=== PATIENT | female | born 1995 ===

== ENCOUNTER 2018-09-02 23:13 | Observation (INO) | payer MEDICAID ==
[2018-09-02] MEDS ORDERED: SODIUM CHLORIDE 0.9% 500 ML IV ONE (23:29)
[2018-09-02] MEDS ORDERED: ONDANSETRON HCL IV 4 MG/2 ML VIAL IV ONE (23:29)
--- NOTE | 2018-09-02 23:36 | Emergency Department Record ---
History of Present Illness - General Chief Complaint: Fever Stated Complaint: FEVER Time Seen by Provider: 09/02/18 23:20 Source: Communications Engineer Mode of Arrival: Ambulatory Limitations: No limitations - History of Present Illness Initial Comments: The patient is here with a caregiver from her foster usp due to a 2 day hx of nausea, vomiting, and loose stools. 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 She normally lives in [place] and has been a resident of a foster usp in [place] for about 2 months. The caregiver is not able to provide any other history and is not familiar with the patient. She appears to have a history of seizures per her home medicines. The patient also is in a diaper and is not continent per the caregiver. No other hx is provided. MD Complaint: Malaise Onset/Timin -: Days(s) Context: Other Associated Symptoms: Vomiting, Diarrhea Treatments Prior to Arrival: Ibuprofen - Related Data Home Medications Medication Instructions Recorded Confirmed Last Taken Cholecalciferol (Vitamin D3) 1,000 unit PO DAILY 09/02/18 09/03/18 Unknown [Vitamin D3] Clonidine HCl 0.1 mg PO QAM 09/02/18 09/03/18 Unknown Clonidine HCl 0.2 mg PO QPM 09/02/18 09/03/18 Unknown Divalproex Sodium [Depakote] 250 mg PO TID 09/02/18 09/03/18 Unknown Lactulose 10 gm PO DAILY 09/02/18 09/03/18 Unknown Levetiracetam [Keppra] 500 mg PO BID 09/02/18 09/03/18 Unknown Polyethylene Glycol 3350 238Gm 17 gm PO DAILY 09/02/18 09/02/18 Unknown [Polyethylene Glycol 3350] Pyridoxine HCl [Vitamin B-6] 100 mg PO DAILY 09/02/18 09/03/18 Unknown Risperidone [Risperadol] 1 mg PO BID PRN 09/02/18 09/03/18 Unknown Risperidone [Risperdal] 0.25 mg PO BID 09/02/18 09/03/18 Unknown Risperidone [Risperdal] 1 mg PO QAM 09/02/18 09/03/18 Unknown Allergies Allergy/AdvReac Type Severity Reaction Status Date / Time No Known Drug Allergies Allergy Verified 09/02/18 23:29 Travel Screening - Travel/Exposure Within Last 30 Days Have you traveled within the last 30 days?: No - Travel Symptoms Symptom Screening: Fever (Subjective) Review of Systems ROS unobtainable: Due to mental status Past Medical History - SOCIAL HISTORY Smoking Status: Never smoker Alcohol Use: None Drug Use: None - RESPIRATORY Hx Respiratory Disorders: No - CARDIOVASCULAR Hx Cardio Disorders: No - NEURO Hx Neuro Disorders: Yes Comment:: blind and deaf - GI Hx GI Disorders: No - Hx Genitourinary Disorders: No - ENDOCRINE Hx Endocrine Disorders: No - MUSCULOSKELETAL Hx Musculoskeletal Disorders: No - PSYCH Hx Psych Problems: No - HEMATOLOGY/ONCOLOGY Hx Hematology/Oncology Disorders: No Family Medical History Any Significant Family History?: No Family Hx Comment (NOT TO BE USED IN PLACE OF ITEMS BELOW): unknown Physical Exam - General General Appearance: Alert, No acute distress - Head Head exam: Atraumatic, Normocephalic - Neck Neck exam: Normal inspection, Full ROM. negative: Tenderness - Respiratory Respiratory exam: Normal lung sounds bilaterally. negative: Respiratory distress - Cardiovascular Cardiovascular Exam: Regular rate, Normal rhythm, Normal heart sounds - GI/Abdominal GI/Abdominal exam: Soft, Normal bowel sounds. negative: Tenderness - Extremities Extremities exam: Normal inspection, Full ROM, Normal capillary refill. negative: Tenderness - Neurological Neurological exam: Abnormal gait (chronic. The patient has a shuffling gait which is normal for her per foster usp caregiver.). negative: Alert (The patient is presently sleeping but did walk into the ER with the caregiver.), Motor sensory deficit (She is moving her arms and legs spontaneously and did walk into the ER.), Normal gait, Oriented X3 Course Vital Signs 09/02/18 23:26 Temperature 98.7 F Pulse Rate [ 70 Pulse Ox Probe] Respiratory 20 Rate Blood Pressure 87/61 [Left Arm] Pulse Ox 96 - Reevaluation(s) Reevaluation #1: The patient is doing better at this time and is resting comfortably and is sleeping normally per the caregiver. On exam her abdomen is soft and nontender and there is no fever presently on a rectal temp. I did explain to the caregiver that the evaluation so far is basically WNL's but that she does have a mild bandemia on her WBC differential. Due to the difficulty with her examination and the fact that her blood pressure is running low (although she did get Clonidine just prior to presenting to the ER) we will admit the patient for a short stay admission. 09/03/18 01:24 Medical Decision Making - Data Complexity MDM Data: Labs Ordered and/or Reviewed, X-Ray Ordered and/or Reviewed - Lab Data Result diagrams: 09/02/18 23:55 09/02/18 23:55 - Radiology Data Radiology results: Report reviewed (Abd CT: Chronic constipation. ) Disposition Disposition: Admit Clinical Impression: Vomiting and diarrhea Disposition: Still a Patient at [facility] Decision to Admit: Admit from ER Decision to Admit Date: 09/03/18 Decision to Admit Time: : Accepting Physician: Jordan Time Discussed w/Accepting Physician: : Condition: (2) Stable Forms: Patient Portal Access Time of Disposition: Quality - Quality Measures Quality Measures: N/A - Blood Pressure Screening View Details: Yes Does Patient Have Any of the Following: No Blood Pressure Classification: Normal BP Reading Systolic Measurement: 79 Diastolic Measurement: 51 Screening for High Blood Pressure: < Normal BP, F/U Not Required > [G8783]
[2018-09-03 00:07] LABS: HEMOGLOBIN 12.8 gm/dl (11.6-16.0); MEAN CELL VOLUME 88.4 fl (81-97); MEAN CORPUSCULAR HEMOGLOBIN 29.8 pg (27-33); MEAN CORPUSCULAR HGB CONC 33.7 g/dl (32-36); MEAN PLATELET VOLUME 12.3 fl (7.4-10.4); PLATELET COUNT 122 K/uL (130-400); RED CELL DISTRIBUTION WIDTH 13.4 % (11.5-14.5); WHITE BLOOD COUNT W/O DIFF 7.5 K/uL (4.2-12.2)
[2018-09-03 00:10] LABS: URINE APPEARANCE CLEAR; URINE BILIRUBIN NEGATIVE (NEGATIVE); URINE BLOOD NEGATIVE (NEGATIVE); URINE COLOR YELLOW; URINE GLUCOSE (UA) NEGATIVE (NEGATIVE); URINE KETONE NEGATIVE (NEGATIVE); URINE LEUKOCYTE ESTERASE NEGATIVE (NEGATIVE); URINE NITRITE NEGATIVE (NEGATIVE); URINE PROTEIN NEGATIVE (NEGATIVE); URINE UROBILINOGEN 0.2 E.U./dL (0.20 - 1.00)
[2018-09-03 00:17] LABS: BLOOD UREA NITROGEN 13 mg/dL (6-20); CREATININE 0.7 mg/dL (0.5-0.9); EST GLOMERULAR FILTRATION RATE > 60 mL/min
[2018-09-03 00:18] LABS: TOTAL PROTEIN 6.9 g/dL (6.6-8.7)
[2018-09-03 00:20] LABS: GLUCOSE,RANDOM 101 mg/dL (74-109)
[2018-09-03 00:22] LABS: ALBUMIN 3.6 g/dL (4.0-5.0); ALT/SGPT 18 U/L (<33); AST/SGOT 38 U/L (10.0-35.0)
[2018-09-03 00:23] LABS: ALKALINE PHOSPHATASE 49 U/L (35-104); LIPASE 48 U/L (13-60)
[2018-09-03 00:25] LABS: BILIRUBIN,DIRECT < 0.2 mg/dL (0-0.3)
[2018-09-03 00:36] LABS: PLATELET ESTIMATE NORMAL (NORMAL)
[2018-09-03] MEDS ORDERED: 0.9 % SODIUM CHLORIDE 1000ML 1,000 ML IV PRN (02:23)
[2018-09-03] MEDS ORDERED: RISPERIDONE 1 MG TABLET PO PRN (02:23)
[2018-09-03 06:59] LABS: HEMOGLOBIN 13.6 gm/dl (11.6-16.0); MEAN CELL VOLUME 88.7 fl (81-97); MEAN CORPUSCULAR HEMOGLOBIN 29.4 pg (27-33); MEAN CORPUSCULAR HGB CONC 33.2 g/dl (32-36); MEAN PLATELET VOLUME 11.7 fl (7.4-10.4); PLATELET COUNT 122 K/uL (130-400); RED BLOOD COUNT 4.62 M/uL (3.80-5.40); RED CELL DISTRIBUTION WIDTH 13.6 % (11.5-14.5); WHITE BLOOD COUNT W/O DIFF 6.2 K/uL (4.2-12.2)
[2018-09-03] MEDS ORDERED: PANTOPRAZOLE SODIUM IV 40 MG VIAL IV SCH (07:00)
[2018-09-03 07:20] LABS: ALB/GLOB RATIO 1.1 (1.1-1.8); ALBUMIN 3.5 g/dL (4.0-5.0); ALKALINE PHOSPHATASE 48 U/L (35-104); ALT/SGPT 16 U/L (<33); AST/SGOT 26 U/L (10.0-35.0); BLOOD UREA NITROGEN 14 mg/dL (6-20); CREATININE 0.6 mg/dL (0.5-0.9); EST GLOMERULAR FILTRATION RATE > 60 mL/min; GLUCOSE,RANDOM 78 mg/dL (74-109); TOTAL PROTEIN 6.6 g/dL (6.6-8.7)
[2018-09-03 07:40] LABS: PLATELET ESTIMATE NORMAL (NORMAL)
[2018-09-03] MEDS ORDERED: LACTULOSE 20 GM/30 ML UDC PO SCH (10:00)
[2018-09-03] MEDS ORDERED: LEVETIRACETAM 500 MG TABLET PO SCH (10:00)
[2018-09-03] MEDS ORDERED: POLYETHYLENE GLYCOL 3350 238GM BOTTLE PO SCH (10:00)
--- NOTE | 2018-09-03 10:12 | History & Physical ---
History of Present Illness - Date of Service Date of Service for History & Physical: 09/03/18 - History of Present Illness Admitting Diagnosis: 1. Vomiting and Diarrhea History of Present Illness: Ms. Pinzon is a 23 year-old female who presented to the ED with her caregiver from an [facility] home with concern of 2 days hx of nausea, vomiting, and loose stools. 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 She normally lives in [place] and has been a resident of a foster snf in [place] for about 2 months. The caregiver is not able to provide any other history and is not familiar with the patient. The patient also is in a diaper and is not continent per the caregiver. Her history includes: deaf, blind, and epilepsy. She does follow neurology for epilepsy. In the ED, her vitals were BP 87/61, HR 70, T 98.7F, and 96% on room air. She did receive clonidine just prior to presenting to the ED. CBC and CMP were fairly normal, slight bandemia, UA was negative. CXR normal, abdominal CT demonstrated chronic constipation. She was admitted for observation for hypotension. 09/03/18 0930: Pt. is resting in bed, she is responsive to touch and appears to behave at her baseline. She has not vomited or had diarrhea since admission. Her vitals have remained at her baseline and her am labs were unremarkable. Her clonidine has been held due to her low BP. I called her caregiver and discussed pt's status, will plan to discharge back to [facility] early afternoon today. Pt. is to f/u with neurology regarding clonidine usage. Travel Screening - Travel/Exposure Within Last 30 Days Have you traveled within the last 30 days?: No Location Detail:: unable to answer - Travel/Exposure Within Last Year Have you traveled outside the [place] in the last year?: No Location Detail:: unable to answer - Additonal Travel Details Have you been exposed to anyone with a communicable illness?: No Exposure Details:: unable to answer - Travel Symptoms Symptom Screening: Diarrhea, Vomiting Past Medical History - SOCIAL HISTORY Smoking Status: Never smoker - RESPIRATORY Hx Respiratory Disorders: No - CARDIOVASCULAR Hx Cardio Disorders: No - NEURO Hx Neuro Disorders: Yes Comment:: blind and deaf - GI Hx GI Disorders: No - Hx Genitourinary Disorders: No - ENDOCRINE Hx Endocrine Disorders: No - MUSCULOSKELETAL Hx Musculoskeletal Disorders: No - PSYCH Hx Psych Problems: No - HEMATOLOGY/ONCOLOGY Hx Hematology/Oncology Disorders: No Family Medical History Any Significant Family History?: No Family Hx Comment (NOT TO BE USED IN PLACE OF ITEMS BELOW): unknown H&P Meds/Allergies - Allergies Allergies: Allergies Allergy/AdvReac Type Severity Reaction Status Date / Time No Known Drug Allergies Allergy Verified 09/02/18 23:29 - Home Medications Home Medications Medication Instructions Recorded Confirmed Last Taken Cholecalciferol (Vitamin D3) 1,000 unit PO DAILY 09/02/18 09/03/18 Unknown [Vitamin D3] Clonidine HCl 0.1 mg PO QAM 09/02/18 09/03/18 Unknown Clonidine HCl 0.2 mg PO QPM 09/02/18 09/03/18 Unknown Divalproex Sodium [Depakote] 250 mg PO TID 09/02/18 09/03/18 Unknown Lactulose 10 gm PO DAILY 09/02/18 09/03/18 Unknown Levetiracetam [Keppra] 500 mg PO BID 09/02/18 09/03/18 Unknown Polyethylene Glycol 3350 238Gm 17 gm PO DAILY 09/02/18 09/02/18 Unknown [Polyethylene Glycol 3350] Pyridoxine HCl [Vitamin B-6] 100 mg PO DAILY 09/02/18 09/03/18 Unknown Risperidone [Risperadol] 1 mg PO BID PRN 09/02/18 09/03/18 Unknown Risperidone [Risperdal] 0.25 mg PO BID 09/02/18 09/03/18 Unknown Risperidone [Risperdal] 1 mg PO QAM 09/02/18 09/03/18 Unknown - Active Medications Active Medications: Current Medications Sodium Chloride () 1,000 mls @ 80 mls/hr IV .[id number] PRN PRN Reason: LARGE VOLUME IV Last Admin: 09/03/18 02:32 Dose: 80 mls/hr Lactulose (Lactulose) 10 gm PO DAILY ELVIS Levetiracetam (Keppra) 500 mg PO BID ELVIS Pantoprazole Sodium (Protonix Iv) 40 mg IV DAILYAC ELVIS Last Admin: 09/03/18 06:22 Dose: 40 mg Polyethylene Glycol (Polyethylene Glycol 3350) 17 gm PO DAILY ELVIS Risperidone (Risperadol) 1 mg PO BID PRN PRN Reason: AGITATION Physical Exam - Vital Signs Vital Signs: Vital Signs - Last 24 Hrs Temp Pulse Resp BP Pulse Ox 09/03/18 09:00 97.1 F L 84 18 78/53 96 09/03/18 05:14 64 16 09/03/18 05:00 98.1 F 74 16 140/44 96 09/03/18 01:58 97.7 F 64 16 86/49 96 09/03/18 01:22 97.5 F L 09/03/18 01:12 57 L 20 79/51 100 09/02/18 23:26 98.7 F 70 20 87/61 96 - General General Appearance: Alert, No acute distress Limitations: No limitations - Head Head exam: Atraumatic, Normocephalic - Neck Neck exam: Normal inspection, Full ROM. negative: Tenderness - Respiratory Respiratory exam: Normal lung sounds bilaterally. negative: Respiratory distress - Cardiovascular Cardiovascular Exam: Regular rate, Normal rhythm, Normal heart sounds - GI/Abdominal GI/Abdominal exam: Soft, Normal bowel sounds. negative: Tenderness - Extremities Extremities exam: Normal inspection, Full ROM, Normal capillary refill. negative: Tenderness - Neurological Neurological exam: Abnormal gait (chronic. The patient has a shuffling gait which is normal for her per foster snf caregiver.). negative: Alert (The patient is presently sleeping but did walk into the ER with the caregiver.), Motor sensory deficit (She is moving her arms and legs spontaneously and did walk into the ER.), Normal gait, Oriented X3 Results - Labs Result Diagrams: 09/03/18 06:17 09/03/18 06:17 Labs Last 24 Hours: Laboratory Results - last 24 hr 09/02/18 09/02/18 09/02/18 23:55 23:55 23:55 WBC 7.5 RBC 4.30 Hgb 12.8 Hct 38.0 MCV 88.4 MCH 29.8 MCHC 33.7 RDW 13.4 Plt Count 122 L MPV 12.3 H Neutrophils % 37.0 L Band Neutrophils % 10.0 H Eosinophils % Not Reportable Basophils % Not Reportable Lymphocytes 29.0 Monocytes 23.0 H Platelet Estimate Normal RBC Morphology Normal Eosinophil Count 1.0 Sodium 138 Potassium 4.3 Chloride 100 Carbon Dioxide 25.0 Anion Gap 13.0 BUN 13 Creatinine 0.7 Estimated GFR > 60 Random Glucose 101 Calcium 8.9 Total Bilirubin 0.20 Direct Bilirubin < 0.2 AST 38 H ALT 18 Alkaline Phosphatase 49 C-Reactive Protein Total Protein 6.9 Albumin 3.6 L Globulin Albumin/Globulin Ratio Lipase 48 Serum HCG, Qual Urine Color Yellow Urine Appearance Clear Urine pH 6.0 Ur Specific [place] 1.015 Urine Protein Negative Urine Glucose (UA) Negative Urine Ketones Negative Urine Blood Negative Urine Nitrite Negative Urine Bilirubin Negative Urine Urobilinogen 0.2 Ur Leukocyte Esterase Negative Urine HCG, Qual Valproic Acid 09/02/18 09/02/18 09/03/18 23:55 23:55 06:17 WBC 6.2 RBC 4.62 Hgb 13.6 Hct 41.0 MCV 88.7 MCH 29.4 MCHC 33.2 RDW 13.6 Plt Count 122 L MPV 11.7 H Neutrophils % 26.0 L Band Neutrophils % 3.0 Eosinophils % Not Reportable Basophils % Not Reportable Lymphocytes 55.0 H Monocytes 16.0 H Platelet Estimate Normal RBC Morphology Normal Eosinophil Count Sodium Potassium Chloride Carbon Dioxide Anion Gap BUN Creatinine Estimated GFR Random Glucose Calcium Total Bilirubin Direct Bilirubin AST ALT Alkaline Phosphatase C-Reactive Protein 1.06 H Total Protein Albumin Globulin Albumin/Globulin Ratio Lipase Serum HCG, Qual Cancelled Urine Color Urine Appearance Urine pH Ur Specific [place] Urine Protein Urine Glucose (UA) Urine Ketones Urine Blood Urine Nitrite Urine Bilirubin Urine Urobilinogen Ur Leukocyte Esterase Urine HCG, Qual Valproic Acid 09/03/18 09/03/18 09/03/18 06:17 Unknown Unknown WBC RBC Hgb Hct MCV MCH MCHC RDW Plt Count MPV Neutrophils % Band Neutrophils % Eosinophils % Basophils % Lymphocytes Monocytes Platelet Estimate RBC Morphology Eosinophil Count Sodium 142 Potassium 4.4 Chloride 104 Carbon Dioxide 28.0 Anion Gap 10.0 BUN 14 Creatinine 0.6 Estimated GFR > 60 Random Glucose 78 Calcium 9.0 Total Bilirubin 0.20 Direct Bilirubin AST 26 ALT 16 Alkaline Phosphatase 48 C-Reactive Protein Total Protein 6.6 Albumin 3.5 L Globulin 3.1 Albumin/Globulin Ratio 1.1 Lipase Serum HCG, Qual Urine Color Urine Appearance Urine pH Ur Specific [place] Urine Protein Urine Glucose (UA) Urine Ketones Urine Blood Urine Nitrite Urine Bilirubin Urine Urobilinogen Ur Leukocyte Esterase Urine HCG, Qual Negative Valproic Acid 103.0 H - Imaging and Cardiology Chest x-ray Status: Image reviewed (No acute process) CT scan - abdomen Status: Pending (Chronic constipation) VTE H&P Assessment - Risk for VTE Risk for VTE: No Risk Level: Very Low Risk Assessment Date: 09/03/18 Risk Assessment Time: 10:25 VTE Orders Placed or Will Be Placed: No VTE Reason for No Prophylaxis: Not Indicated (mobility not impaired) Plan - Detailed Diagnosis and Plan (1) Vomiting and diarrhea Current Visit: Yes Status: Acute Base Code: R11.10 - VOMITING, UNSPECIFIED; R19.7 - DIARRHEA, UNSPECIFIED Comment: 09/03/18: -Symptoms have resolved since presenting to ED -Pt. is tolerating soft diet -she has 2 semi-formed stools this morning (2) Hypotension Current Visit: Yes Status: Acute Base Code: I95.9 - HYPOTENSION, UNSPECIFIED Comment: 09/03/18: -BP 87/61 in ED (pt had her clonidine prior to presenting to ED) -Holding clonidine and BP has remained upper 80s/50s -BP likely at baseline (similar to BP during recent [facility] visit) -Will plan to d/c back to [facility] and pt to f/u with neurology regarding continuation of clonidine (3) Epilepsy Current Visit: Yes Status: Acute Base Code: G40.909 - EPILEPSY, UNSP, NOT INTRACTABLE, WITHOUT STATUS EPILEPTICUS Comment: 09/03/18: -Epilepsy managed by neurology per pt's caregiver -Continue keppra 500mg bid -Holding clonidine due to hypotension (4) Blindness with deafness Current Visit: Yes Status: Acute Base Code: H54.7 - UNSPECIFIED VISUAL LOSS ; H91.90 - UNSPECIFIED HEARING LOSS, UNSPECIFIED EAR Comment: 09/03/18: -Up with assist x1 -Bed alarm on (5) Constipation Current Visit: Yes Status: Acute Base Code: K59.00 - CONSTIPATION, UNSPECIFIED Comment: 09/03/18: -Chronic constipation demonstrated on abdominal CT in ED (09/02) -Restarting lactulose and miralax (home meds had been held due to concern of diarrhea and pt incontinent of bowel and bladder) -Pt. had 2 semi-formed stools this morning (6) Full code status Current Visit: Yes Status: Acute Base Code: Z78.9 - OTHER SPECIFIED HEALTH STATUS Comment: 09/03/18: -Pt. is a full code
--- NOTE | 2018-09-03 11:20 | Discharge Summary ---
Providers Discharge Summary Date: 09/03/18 Date of admission: 09/03/18 01:52 Expected Date of Discharge: 09/03/18 Attending physician: STEPHANIE WATTERS Physical Exam - Vital Signs Vital Signs: Vital Signs - Last 24 Hrs Temp Pulse Resp BP Pulse Ox 09/03/18 09:00 97.1 F L 84 18 78/53 96 09/03/18 05:14 64 16 09/03/18 05:00 98.1 F 74 16 140/44 96 09/03/18 01:58 97.7 F 64 16 86/49 96 09/03/18 01:22 97.5 F L 09/03/18 01:12 57 L 20 79/51 100 09/02/18 23:26 98.7 F 70 20 87/61 96 - General General Appearance: Alert, No acute distress Limitations: Other (deaf and blind) - Head Head exam: Atraumatic, Normocephalic - Neck Neck exam: Normal inspection, Full ROM. negative: Tenderness - Respiratory Respiratory exam: Normal lung sounds bilaterally. negative: Respiratory distress - Cardiovascular Cardiovascular Exam: Regular rate, Normal rhythm, Normal heart sounds - GI/Abdominal GI/Abdominal exam: Soft, Normal bowel sounds. negative: Tenderness - Extremities Extremities exam: Normal inspection, Full ROM, Normal capillary refill. negative: Tenderness - Neurological Neurological exam: Abnormal gait (chronic. The patient has a shuffling gait which is normal for her per foster senior care caregiver.). negative: Alert (The patient is presently sleeping but did walk into the ER with the caregiver.), Motor sensory deficit (She is moving her arms and legs spontaneously and did walk into the ER.), Normal gait, Oriented X3 Hospitalization - Hospitalization Admission Diagnosis: 1. Vomiting and Diarrhea - Problem List/Discharge Diagnosis (1) Vomiting and diarrhea Current Visit: Yes Status: Acute Base Code: R11.10 - VOMITING, UNSPECIFIED; R19.7 - DIARRHEA, UNSPECIFIED Comment: 09/03/18: -Symptoms have resolved since presenting to ED -Pt. is tolerating soft diet -she has 2 semi-formed stools this morning (2) Hypotension Current Visit: Yes Status: Acute Base Code: I95.9 - HYPOTENSION, UNSPECIFIED Comment: 09/03/18: -BP 87/61 in ED (pt had her clonidine prior to presenting to ED) -Holding clonidine and BP has remained upper 80s/50s -BP likely at baseline (similar to BP during recent [facility] visit) -Will plan to d/c back to [facility] and pt to f/u with neurology regarding continuation of clonidine (3) Epilepsy Current Visit: Yes Status: Acute Base Code: G40.909 - EPILEPSY, UNSP, NOT INTRACTABLE, WITHOUT STATUS EPILEPTICUS Comment: 09/03/18: -Epilepsy managed by neurology per pt's caregiver -Continue keppra 500mg bid -Holding clonidine due to hypotension (4) Blindness with deafness Current Visit: Yes Status: Acute Base Code: H54.7 - UNSPECIFIED VISUAL LOSS ; H91.90 - UNSPECIFIED HEARING LOSS, UNSPECIFIED EAR Comment: 09/03/18: -Up with assist x1 -Bed alarm on (5) Constipation Current Visit: Yes Status: Acute Base Code: K59.00 - CONSTIPATION, UNSPECIFIED Comment: 09/03/18: -Chronic constipation demonstrated on abdominal CT in ED (09/02) -Restarting lactulose and miralax (home meds had been held due to concern of diarrhea and pt incontinent of bowel and bladder) -Pt. had 2 semi-formed stools this morning (6) Full code status Current Visit: Yes Status: Acute Base Code: Z78.9 - OTHER SPECIFIED HEALTH STATUS Comment: 09/03/18: -Pt. is a full code - Hospitalization Course Disposition: Home Health Service Hospital Course: Ms. Pinzon is a 23 year-old female who presented to the ED with her caregiver from an [facility] home with concern of 2 days hx of nausea, vomiting, and loose stools. 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 She normally lives in [place] and has been a resident of a foster senior care in [place] for about 2 months. The caregiver is not able to provide any other history and is not familiar with the patient. The patient also is in a diaper and is not continent per the caregiver. Her history includes: deaf, blind, and epilepsy. She does follow neurology for epilepsy. In the ED, her vitals were BP 87/61, HR 70, T 98.7F, and 96% on room air. She did receive clonidine just prior to presenting to the ED. CBC and CMP were fairly normal, slight bandemia, UA was negative. CXR normal, abdominal CT demonstrated chronic constipation. She was admitted for observation for hypotension. 09/03/18 0930: Pt. is resting in bed, she is responsive to touch and appears to behave at her baseline. She has not vomited or had diarrhea since admission. Her vitals have remained at her baseline and her am labs were unremarkable. Her clonidine has been held due to her low BP. I called her caregiver and discussed pt's status, will plan to discharge back to [facility] early afternoon today. Pt. is to f/u with neurology regarding clonidine usage. Procedures: Imaging and X-Rays 09/02/18 23:30 CHEST 2 VIEWS [RAD] Stat 09/03/18 00:40 ABDOMEN/PELVIS WO CONTRAST [CT] Stat Abnormal Labs: Abnormal Lab Results 09/02/18 09/02/18 09/02/18 Range/Units 23:55 23:55 23:55 Plt Count 122 L (130-400) K/uL MPV 12.3 H (7.4-10.4) fl Neutrophils % 37.0 L (47-80) % Band Neutrophils % 10.0 H (0-5) % Lymphocytes (16-45) % Monocytes 23.0 H (0-9) % AST 38 H (10.0-35.0) U/L C-Reactive Protein 1.06 H (<0.5) mg/dL Albumin 3.6 L (4.0-5.0) g/dL Valproic Acid (50.0-100.0) ug/mL 09/03/18 09/03/18 09/03/18 Range/Units 06:17 06:17 Unknown Plt Count 122 L (130-400) K/uL MPV 11.7 H (7.4-10.4) fl Neutrophils % 26.0 L (47-80) % Band Neutrophils % (0-5) % Lymphocytes 55.0 H (16-45) % Monocytes 16.0 H (0-9) % AST (10.0-35.0) U/L C-Reactive Protein (<0.5) mg/dL Albumin 3.5 L (4.0-5.0) g/dL Valproic Acid 103.0 H (50.0-100.0) ug/mL Condition at Discharge: (2) Stable VTE Discharge VTE Reason For No Overlap Therapy: Not Indicated Discharge Medications - Discharge Medications Home Medications: Ambulatory Orders Cholecalciferol (Vitamin D3) [Vitamin D3] 1,000 unit PO DAILY 09/02/18 [Last Taken Unknown] Divalproex Sodium [Depakote] 250 mg PO TID 09/02/18 [Last Taken Unknown] Lactulose 10 gm PO DAILY 09/02/18 [Last Taken Unknown] Levetiracetam [Keppra] 500 mg PO BID 09/02/18 [Last Taken Unknown] Polyethylene Glycol 3350 238Gm [Polyethylene Glycol 3350] 17 gm PO DAILY [Last Taken Unknown] Pyridoxine HCl [Vitamin B-6] 100 mg PO DAILY 09/02/18 [Last Taken Unknown] Risperidone [Risperadol] 1 mg PO BID PRN 09/02/18 [Last Taken Unknown] Risperidone [Risperdal] 0.25 mg PO BID 09/02/18 [Last Taken Unknown] Risperidone [Risperdal] 1 mg PO QAM 09/02/18 [Last Taken Unknown] Discharge Plan - Discharge Instructions Activity at Discharge: Increase Activity as Tolerated Diet at Discharge: Regular Diet Additional Instructions: Follow up with neurology regarding slightly elevated valproic acid level (103.0 ) and restarting clonidine (currently held due to hypotension) Quality Measures - Quality Measures Quality Measures: Documentation of Current Medications in Medical Record, Screening for High Blood Pressure and F/U Documented - Current Medications Quality Measure: Measure #130: Documentation of Current Medications Documentation of Current Medications: <Current Medications Documented/Reviewed> [G8473] - Blood Pressure Screening Quality Measure: Screening for High Blood Pressure and Follow-Up Documented Does Patient Have Any of the Following: No Blood Pressure Classification: Normal BP Reading Systolic Measurement: 78 Diastolic Measurement: 53 Screening for High Blood Pressure: < Normal BP, F/U Not Required > [G8783] - Elder Abuse Suspicion Index EASI Reference Information: Bari DUNCAN, Parker C, Vickie D, Arlin M.Development and validation of a tool to assist physicians identification of elder abuse: The Elder Abuse Suspicion Index (EASI ). Journal of Elder Abuse and Neglect, 2008; 20 (3): 276-300.
--- NOTE | 2018-09-03 12:38 | CT SCAN REPORT ---
EXAM: CT OF THE ABDOMEN AND PELVIS WITHOUT CONTRAST HISTORY: MENTAL STATUS CHANGE, NOT ACTING APPROPRIATE. TECHNIQUE: Sequential axial images were obtained from the diaphragms through the ischiorectal fossa without intravenous or oral contrast administration. FINDINGS: There is a small air cyst in the right lower lobe. No gross abnormalities within the liver. The gallbladder, pancreas, and spleen appear normal. The adrenal glands and kidneys appear normal. There is increased stool throughout the entire colon. There is a mobile cecum present. The appendix is visualized and appears normal. The urinary bladder appears normal. The uterus and adnexal structures are normal. There is a linear density in the sigmoid colon measuring 2 cm x 4 mm. This may represent ingested material. The urinary bladder appears normal. The osseous structures are normal. IMPRESSION: 1. THERE IS A MODERATE AMOUNT OF INCREASED STOOL THROUGHOUT THE COLON. RADIOPAQUE LINER DENSITY IN THE SIGMOID REGION. THIS LIKELY REPRESENTS INGESTED FOREIGN BODY. 2. THE APPENDIX IS VISUALIZED AND APPEARS NORMAL. JOB NUMBER: [id number] MTDD
--- NOTE | 2018-09-03 12:40 | RADIOLOGY REPORT ---
EXAM: CHEST, TWO VIEWS HISTORY: DIFFICULTY BREATHING. TECHNIQUE: Frontal and lateral views of the chest were performed. FINDINGS: The heart size is normal. The lung perales are clear. No infiltrate or pleural effusion. IMPRESSION: NEGATIVE CHEST EXAMINATION. JOB NUMBER: [id number] MTDD
== END 2018-09-03 11:56 | disposition home health service (06) ==
LOC: ER 23:13 → MEDSURG 09-03 01:52
PROVIDERS: ADMIT Internal Medicine; ATTEND Internal Medicine
DX: R11.0 Nausea (principal); I95.9 Hypotension, unspecified; G40.909 Epilepsy, unspecified, not intractable, without status epilepticus; H54.7 Unspecified visual loss; H91.90 Unspecified hearing loss, unspecified ear; K59.00 Constipation, unspecified
CPT/HCPCS: 71046; 74176; 80048; 80053; 80076; 80164; 81003; 81025; 83690; 85027; 86140; 96361; 96374; 99220; 99285; C9113; J2405